=== PATIENT | male | born 1960 | race Caucasian/White ===

== ENCOUNTER 2018-12-29 16:32 | Emergency (ER) | payer OTHER ==
[~2018-12-29] VITALS: Ht 167.6 cm; Wt 71.8 kg
[2018-12-29 16:35] VITALS: BP 129/100
--- NOTE | 2018-12-29 16:44 | NUR ---
PT AMBULATED TO BED 6
--- NOTE | 2018-12-29 16:57 | NUR ---
PT C/O RIGHT RIBS PAIN S/P FELL FROM PLATFORM APPROX 10 FEET TO CONCRETE GROUND AT WORK X TODAY. DENIES LOC. REPORTS NAUSEA AFTER THE FALL. PATIENT STATES PAIN OF 10/10 AT THIS TIME; VSS; PATIENT POSITIONED FOR COMFORT; HOB ELEVATED; BEDRAILS UP X1; BED DOWN. ER MD MADE AWARE OF PT STATUS.
[2018-12-29] MEDS ORDERED: MORPHINE SULFATE 4 MG/ML SYR IM ONE (18:20)
[2018-12-29 18:40] VITALS: BP 132/87
--- NOTE | 2018-12-29 18:40 | NUR ---
Patient discharged with v/s stable. Written and verbal after care instructions given and explained. Patient alert, oriented and verbalized understanding of instructions. Ambulatory with steady gait. All questions addressed prior to discharge. ID band removed. Patient advised to follow up with PMD. Rx of [place], Motrin given. Patient educated on indication of medication including possible reaction and side effects. Opportunity to ask questions provided and answered.
== END 2018-12-29 18:40 | disposition home or self-care (01) ==
LOC: MED 16:32
DX: S20.211A Contusion of right front wall of thorax, initial encounter (principal); I48.91 Unspecified atrial fibrillation; I11.0 Hypertensive heart disease with heart failure; I50.9 Heart failure, unspecified; F17.210 Nicotine dependence, cigarettes, uncomplicated; Z95.0 Presence of cardiac pacemaker; Z90.89 Acquired absence of other organs; Z90.49 Acquired absence of other specified parts of digestive tract; W18.39XA Other fall on same level, initial encounter; Y93.89 Activity, other specified; Y92.89 Other specified places as the place of occurrence of the external cause; Y99.8 Other external cause status
CPT/HCPCS: 71101; 96372; 99283; J2270